=== PATIENT | female | born 1975 | race Caucasian/White ===

== ENCOUNTER 2022-05-06 15:40 | Emergency (ER) | payer OTHER, SELFPAY ==
--- NOTE | ~2022-05-06 | XR_ITS ---
EXAM: XR hand RT min 3V DATE: 05/06/2022 16:08 HISTORY: smashed hand, pain and bruising on base of thumb . COMPARISON: None available. FINDINGS: Normal mineralization. No fracture or dislocation. No lytic or blastic lesion. Joint space s are maintained. No erosion or periosteal change. Soft tissues within normal limits. IMPRESSION: No acute osseous finding in the right hand. Reviewed, dictated and finalized at location K.
[2022-05-06 15:57] VITALS: BP 146/80; PULSE 68; RESP 18; TEMP 36.8; O2SAT 100
--- NOTE | 2022-05-06 16:13 | ED.GENADULT ---
HPI - General Adult General Chief complaint: Extremity Injury, Upper Stated complaint: rt hand injury History of Present Illness HPI narrative: patient is a 47-year-old female who presents to the [facility] via POV for evaluation of a right hand injury that occurred yesterday. She reports she was unloading equipment from her 's truck when she accidentally smashed it between a truck and equipment. Additionally, she reports pain, swelling, and bruising. Pain is intermittent. She is unable to describe the quality of pain. Apply ice provide some relief. Movement worsens the pain. Related Data Home Medications Medication Instructions Recorded Confirmed cholecalciferol (vitamin D3) 50 50 mcg DAILY 05/06/22 05/06/22 mcg (2,000 unit) tablet folic acid 1 mg tablet 1 mg DAILY 05/06/22 05/06/22 norgestrel 0.3 mg-ethinyl 1 tablet DAILY 05/06/22 05/06/22 estradiol 30 mcg tablet (Low-Ogestrel (28)) Allergies Allergy/AdvReac Type Severity Reaction Status Date / Time No Known Allergies Allergy Verified 05/06/22 16:02 Review of Systems Review of Systems: Pertinent negatives: fever, chills, sweats, change in appetite, poor p.o. intake, malaise, warmth, numbness, tingling, loss of sensation, deformity, decreased range of motion, weakness, difficulty with coordination, nausea, vomiting, lymphadenopathy, shortness of breath, chest pain, heart palpitations, and heart murmur. Exam Narrative: GENERAL: Well-appearing, well-nourished, and in no acute distress. HEAD: Normocephalic, atraumatic. NECK: Supple. No Lymphadenopathy or nuchal rigidity appreciated. CHEST: Bilateral lung davis are clear to auscultation. No respiratory distress. No evidence of cough or pleuritic cp upon examination. HEART: Regular rate and rhythm. No murmur, gallop, or rub heard. EXTREMITIES: Moderate contusion and swelling noted to heal of right hand.No evidence of decreased ROM, cyanosis,laceration, abrasion, deformity, rash, or puncture. No evidence of pain with active/passive ROM. No evidence of dislocation, ligament laxity, effusion, or pain at rest. Pulses palpable at 2+, strength 5/5, and cap refill < 3 seconds in affected extremity. DTRs normal. Gait normal. SKIN: Warm, dry, no rash. NEURO: No focal deficits. Alert and oriented x3. SPECIAL OBSERVATIONS: Smiling. Laughing. No evidence of discomfort. Course Course Level of Care: Express Care Visit Vital Signs Vital signs: Vital Signs Temperature 98.3 F 05/06/22 15:57 Pulse Rate 68 05/06/22 15:57 Respiratory Rate 18 05/06/22 15:57 Blood Pressure 146/80 H 05/06/22 15:57 Pulse Oximetry 100 05/06/22 15:57 Oxygen Delivery Room Air 05/06/22 15:57 Temperature 98.3 F 05/06/22 15:57 Pulse Rate 68 05/06/22 15:57 Respiratory Rate 18 05/06/22 15:57 Blood Pressure 146/80 H 05/06/22 15:57 Pulse Oximetry 100 05/06/22 15:57 Oxygen Delivery Room Air 05/06/22 15:57 Medical Decision Making Differential Diagnosis Differential Diagnosis: Sprain, strain, cellulitis, open fracture, closed fracture, gout Vital Signs Vital Signs: Vital Signs Temperature 98.3 F 05/06/22 15:57 Pulse Rate 68 05/06/22 15:57 Respiratory Rate 18 05/06/22 15:57 Blood Pressure 146/80 H 05/06/22 15:57 Pulse Oximetry 100 05/06/22 15:57 Oxygen Delivery Room Air 05/06/22 15:57 Temperature 98.3 F 05/06/22 15:57 Pulse Rate 68 05/06/22 15:57 Respiratory Rate 18 05/06/22 15:57 Blood Pressure 146/80 H 05/06/22 15:57 Pulse Oximetry 100 05/06/22 15:57 Oxygen Delivery Room Air 05/06/22 15:57 Due to an elevated blood pressure, I had a detailed discussion with the patient and/or guardian regarding the need for follow-up with their primary care provider within the next 3-4 days. Patient verbalized understanding and agreed. Imaging Data My impression: negative Radiologist's impression: no acute osseous findings in the righ
== END 2022-05-06 16:28 | disposition home or self-care (01) ==
PROVIDERS: Emergency Provider Nurse Practitioner Family
DX: S60.221A Contusion of right hand, initial encounter (principal); X58.XXXA Exposure to other specified factors, initial encounter
CPT/HCPCS: 73130; 99203; G0463